=== PATIENT | male | born 1970 | race Caucasian/White ===

== ENCOUNTER 2022-01-11 15:00 | Outpatient (RCR) | payer OTHER, SELFPAY | END 2022-04-08 08:23 | disposition home or self-care (01) | LOC: HO.PTCHIC 15:00 | PROVIDERS: Visit Provider Physician Assistant | DX: M75.01 Adhesive capsulitis of right shoulder (principal); M75.02 Adhesive capsulitis of left shoulder | CPT/HCPCS: 97110; 97140; 97161 ==

== ENCOUNTER 2023-02-04 09:00 | Outpatient (RCR) | payer OTHER, SELFPAY | END 2023-02-04 16:15 | disposition home or self-care (01) | LOC: HO.PT 09:00 | PROVIDERS: PCP Nurse Practitioner Family; Visit Provider Orthopaedic Surgery | DX: Z98.890 Other specified postprocedural states (principal) | CPT/HCPCS: 97110; 97140; 97161 ==